=== PATIENT | male | born 1965 | race Caucasian/White ===

== ENCOUNTER 2016-12-31 20:37 | Emergency (ER) | payer SELFPAY ==
[~2016-12-31] VITALS: Ht 165.1 cm; Wt 72.1 kg
[2016-12-31] MEDS ORDERED: AMOXICILLIN500 MG PO (21:36)
[2016-12-31] MEDS ORDERED: NAPROSYN500 MG PO (21:36)
[2016-12-31 21:58] VITALS: BP 138/86
== END 2016-12-31 21:59 | disposition home or self-care (01) ==
LOC: EME 20:37
PROC: 3E0T3BZ Introduction of Anesthetic Agent into Peripheral Nerves and Plexi, Percutaneous Approach (ICD-10-PCS; principal; 2016-12-31)
DX: K08.89 Other specified disorders of teeth and supporting structures (principal); F17.200 Nicotine dependence, unspecified, uncomplicated
CPT/HCPCS: 99281; 99284